=== PATIENT | male | born 1990 | race Caucasian/White ===

== ENCOUNTER 2023-09-13 11:29 | Emergency (ER) | payer OTHER, SELFPAY ==
[2023-09-13] VITALS (10 sets, daily range): BP systolic 125–126; BP diastolic 71–77; PULSE 83–103; RESP 15–26; TEMP 36.8–37.1; O2SAT 96–100; BMI 28.3
--- NOTE | 2023-09-13 12:06 | EDS_ITS ---
HPI History of Present Illness Chief Complaint: Shortness of Breath Narrative Narrative: 33-year-old male with history of shortness of breath for the last 2 weeks. Initially started with fevers, chills, body aches. He did not quite improve but notes that over the last few days he has been feeling chills and body aches again. States his temperatures been around 100 ?F. He notes that he has some sharp left-sided pain in the left rib/flank. Denies urinary symptoms. Does admit to shortness of breath without significant cough or sputum. Patient states he was dyspneic on exertion into the ER and states he almost fainted walking in. Patient states that prior to coming here he was at the [facility] where they expressed concern that he might have a PE. He does state that they sent him in medication for sinusitis but then recommended he come to the emergency room. Denies any cardiac history. He is a non-smoker. No history of cancer, recent immobilization or recent travel, recent surgery, history of DVT/PE, or hormone use. PFSH PFSH Medical History no medical history Home Medications albuterol sulfate 90 mcg/actuation aerosol inhaler 2 puff inhalation Q6H PRN shortness of breath or wheezing #8.5 grams 09/13/23 [Rx Last Taken Unknown] Allergy/AdvReac Type Severity Reaction Status Date / Time No Known Allergies Allergy Verified 09/13/23 16:16 Social History Smoking Status: Never smoker ROS ROS ED Review of Systems ROS Unobtainable: Denies due to encephalopathy Constitutional Constitutional ED: Reports chills and fever(s) ENT ENT ED: Denies rhinorrhea or sore throat Cardiovascular Cardiovascular: Reports chest pain Respiratory/Chest Respiratory/Chest: Reports dyspnea and dyspnea on exertion Gastrointestinal Gastrointestinal: Denies nausea or vomiting Genitourinary Genitourinary ED: Denies hematuria Musculoskeletal Musculoskeletal: Reports myalgias Integumentary Denies Abrasions or rash Neurologic Neurologic: Reports headache(s); Denies paresthesias Psychiatric Psychiatric: Denies anxiety or depression EXAM Physical Exam Const Vital Signs: 09/13/23 11:30 09/13/23 12:01 09/13/23 12:08 Temperature 98.7 F Temperature Source Temporal Pulse Rate 86 Respiratory Rate 26 H Respiratory Effort Short of Breath Labored Respiratory Pattern Tachypnea Blood Pressure 126/77 H Blood Pressure Mean 93 Pulse Ox 99 99 Oxygen Delivery Method Room Air Room Air 09/13/23 12:16 09/13/23 14:45 09/13/23 15:00 Temperature 98.2 F Temperature Source Oral Pulse Rate 102 H 103 H 102 H Respiratory Rate 20 H 18 23 H Respiratory Effort Respiratory Pattern Tachypnea Blood Pressure Blood Pressure Mean Pulse Ox 100 96 Oxygen Delivery Method Room Air Positive well nourished General Appearance ED: Negative for pallor HEENT Reports moist mucous membranes atraumatic and trauma Eyes PERRL and EOMs intact bilaterally Neck no lymphadenopathy and supple Resp Auscultation: diminished lung sounds left lower; Negative for rales or rhonchi Cardio regular rate and regular rhythm GI non-tender Neuro oriented x3 and CN's II-XII intact bilaterally Sensorium / Orientation: alert Motor Exam: strength 5/5 throughout Psych mental status grossly normal Skin no wounds and skin turgor normal General Skin Exam: Negative for jaundice or pallor MDM MDM MDM Narrative Medical decision making narrative: Patient presenting with chest pain and shortness of breath. Initial onset was about 2 weeks ago with worsening over last few days with subjective fever differential includes acute coronary syndrome, CHF, pneumonia, asthma, COPD, viral syndrome, dehydration, electrolyte abnormalities, PE. CBC was obtained to assess white blood cell count, hemoglobin, platelets. BMP to assess renal function, electrolytes, glucose. High-sensitivity troponin EKG to assess for ischemia/arrhythmia D-dimer obtained to assess for PE. CBC and BMP unremarkable. High-sensitivity troponin is 5. EKG sinus rhythm at a ventricular rate of 68 bpm without sign of ischemic change or ectopy on my interpretation. Since the D-dimer was elevated I did not obtain a chest x-ray and sent the patient to CTA of the chest. This was negative as interpreted by the radiologist and reviewed by myself. Patient ambulated without low pulse ox. He was given breathing treatments but states he did not help. Subjectively patient still has some dyspnea although his vital signs are stable he is afebrile. His work-up is ultimately normal. He is counseled this. Offered viral testing although patient declines. He states he is going to start the Augmentin that the urgent care ordered him for sinusitis although he does not have any significant sinus symptoms. I did offer him an albuterol inhaler as subjectively short of breath and he did wish me to send him one into the pharmacy. Return precautions were discussed. Impression: 1. Chest pain 2. Dyspnea Lab Data Attestation: I reviewed the patient's lab results. Labs: Laboratory Results - last 24 hr 09/13/23 11:50 WBC 9.6 RBC 5.46 Hgb 17.3 H Hct 50.6 MCV 92.7 MCH 31.7 MCHC 34.2 RDW Std Deviation 39.8 RDW Coeff of Jacob 11.8 Plt Count 168 MPV 10.3 Immature Gran % (Auto) 0.300 Neut % (Auto) 73.6 H Lymph % (Auto) 14.1 L [place] % (Auto) 11.5 H Eos % (Auto) 0.2 Baso % (Auto) 0.3 Absolute Neuts (auto) 7.0 Absolute Lymphs (auto) 1.35 Nucleated RBC % 0 D-Dimer Quant (PE/DVT) 0.56 H* Sodium 140 Potassium 3.6 Chloride 110 H Carbon Dioxide 24.0 Anion Gap 6 BUN 9 Creatinine 1.25 Estim Creat Clear Calc 103.20 Est GFR (MDRD) Af Amer 85 Est GFR (MDRD) Non-Af 71 BUN/Creatinine Ratio 7.2 L Glucose 111 H Calcium 8.9 Troponin I High Sens 5 Radiography Diagnostic Testing: Clinical Impression(s) from Imaging Studies Chest CTA 09/13/23 12:33 IMPRESSION: 1. No CTA evidence of central pulmonary thromboemboli but peripheral pulmonary embolism cannot be determined due to suboptimal contrast enhancement of the peripheral pulmonary arteries. 2. No CTA evidence of thoracic aortic aneurysm or dissection. 3. No CT evidence of pneumonia or pulmonary nodules. Electronically Signed: Anthony Govea MD at 13:21 EST , Discharge Plan Triage Chief Complaint: Shortness of Breath ED Provider: Alo Acevedo Dx/Rx/DC Orders Instructions: ED Chest Pain, Uncertain Cause, ED Dyspnea Prescriptions: New albuterol sulfate 90 mcg/actuation HFA aerosol inhaler 2 puff inhalation Q6H PRN (Reason: shortness of breath or wheezing) Qty: 8.5 0RF Primary Care Provider: Hi Emanuel MD Referrals: NOT,DEFINED [Non-Staff] - Disposition Disposition: Home, Self Care
[2023-09-13] MEDS: Albuterol 2.5 MG/3 ML VIAL.NEB. INHALATION (12:15)
[2023-09-13] MEDS: Ipratropium/Albuterol Sulfate 3 ML AMPUL.NEB INHALATION (12:15)
[2023-09-13 12:18] LABS: Absolute Lymphocyte Count 1.35 X10^3/uL (0.83-4.51); Basophil# 0.03 X10^3/uL; Basophil% 0.3 % (0-1); Eosinophil# 0.02 X10^3/uL; Eosinophils% 0.2 % (0-5); Hematocrit 50.6 % (40-54); Hemoglobin 17.3 g/dL (13.0-16.5); Lymphocyte # 1.35 X10^3/ul (0.83-4.51); Lymphocyte % 14.1 % (19-41); Mean Corp Hgb Conc 34.2 g/dL (32-36); Mean Corpuscular Hgb 31.7 pg (27.0-32.0); Mean Corpuscular Volume 92.7 fL (80-94); Mean Platelet Vol. 10.3 fl (6.2-12.0); Monocyte% 11.5 % (0-10); NRBC Flagged by Analyzer 0 % (0-5); Neutrophil # 7.04 X10^3/uL (2.7-7.7); Neutrophil % 73.6 % (47-70); Platelet Count 168 K/mm3 (150-450); RBC Distribution Width CV 11.8 % (11.6-14.6); RBC Distribution Width SD 39.8 fl (35.1-43.9); Red Blood Count 5.46 M/mm3 (4.6-6.2); White Blood Count 9.6 K/mm3 (4.4-11.0)
[2023-09-13 12:33] LABS: D-Dimer Quantitative (DVT/PE) 0.56 FEU/ug/m (0.27-0.49)
--- NOTE | 2023-09-13 12:33 | CT_ITS ---
EXAM: CT ANGIOGRAPHY CHEST WITHOUT AND WITH INTRAVENOUS CONTRAST CLINICAL INDICATION: Chest pain. TECHNIQUE: Helically acquired angiography images were obtained of the chest without and with intravenous contrast. This CT exam was performed using one or more of the following dose reduction techniques: automated exposure control, adjustment of the mA and/or kV according to patient size, and/or use of iterative reconstruction technique. MIP reconstructed images were created and reviewed. CONTRAST: IV 100mL [id number] RADIATION DOSE: CTDIvol = 12.75 mGy, DLP = 517.32 mGy-cm COMPARISON: No relevant prior studies available. FINDINGS: PULMONARY ARTERIES: Suboptimal contrast enhancement of the peripheral pulmonary arteries. Normal in caliber. AORTA: Unremarkable. Normal in caliber. No evidence of dissection. Normal thoracic aorta. GREAT VESSELS OF AORTIC ARCH: Unremarkable. Normal in caliber. No evidence of dissection. LUNGS AND PLEURAL SPACES: The lungs are clear. No mass. No pleural effusion or thickening. No pneumothorax. HEART: Unremarkable. Heart size is normal. Normal coronary arteries. Normal cardiac size. Normal pericardium. MEDIASTINUM: Unremarkable. No mediastinal or hilar adenopathy. Esophagus is unremarkable. No hiatal hernia. THYROID: Unremarkable. No thyroid lesions. BONES/JOINTS: Unremarkable. No suspicious lytic or blastic abnormality. CT/CTA Chest W/WO Contrast IMPRESSION: 1. No CTA evidence of central pulmonary thromboemboli but peripheral pulmonary embolism cannot be determined due to suboptimal contrast enhancement of the peripheral pulmonary arteries. 2. No CTA evidence of thoracic aortic aneurysm or dissection. 3. No CT evidence of pneumonia or pulmonary nodules. Electronically Signed: Anthony Govea MD at 13:21 EST ,
[2023-09-13 12:35] LABS: Anion Gap 6 (5-15); BUN 9 mg/dL (7-18); BUN/Creat Ratio 7.2 RATIO (10-20); Calcium,Total 8.9 mg/dL (8.5-10.1); Chloride 110 mmol/L (98-107); Creatinine, Serum 1.25 mg/dL (0.70-1.30); EST Glomerular Filtration Rate 71 mL/min (>60); Est Glom Filt Rate - Afr Amer 85 mL/min (>60); Glucose 111 mg/dL (74-106); Potassium 3.6 mmol/L (3.5-5.1); Sodium Level 140 mmol/L (136-145); Troponin-I HS 5 pg/mL (3.0-78.0)
[2023-09-13] MEDS: Acetaminophen 500 MG Tablet 1000 MG PO (14:45)
--- NOTE | 2023-09-13 17:10 | ED.RN ---
PT PLACED UP FOR D/C BY DR. DANGELO. PT REMAINS SYMPTOMATIC C/O OF SOB, FEELING DIZZY, LIGHTHEADED AND FF BALANCE WHEN WALKING. PT AMBULATED BY EDDI COOPER WITH PULSE OX FOR A SECOND TIME. PT SPO2 STARTED AT 97 AND DROPPED TO 94 WHEN AMBULATING. PT WITH INCREASED WORK OF BREATHING. AFTER DR. DANGELO DEPARTED. THIS RN SPOKE WITH DR. TRAORE AND PT WAS RE-EVALUATED AND CLEARED FOR DISCHARGE.
[2023-09-13] MEDS: Amox/Clavulanate 875 MG Tablet PO ×2 (17:26→17:27)
== END 2023-09-13 17:30 | disposition home or self-care (01) ==
PROVIDERS: Emergency Provider Student in an Organized Health Care Education/Training Program; Visit Provider Student in an Organized Health Care Education/Training Program
DX: R07.9 Chest pain, unspecified (principal); R06.00 Dyspnea, unspecified
CPT/HCPCS: 71275; 80048; 84484; 85025; 85379; 93005; 94640; 99284; Q9967; A4216